=== PATIENT | male | born 1960 | race American Indian/Alaskan Native ===

== ENCOUNTER 2020-02-07 08:57 | Emergency (ER) | payer OTHER ==
[2020-02-07 09:01] VITALS: PULSE 81; TEMP 99; BMI 32.3
[2020-02-07] MEDS ORDERED: CYCLOBENZAPRINE HCL 5 MG TABLET PO ONE (09:14)
--- NOTE | 2020-02-07 09:14 | PDOC ---
History of Present Illness - General Chief Complaint: Back Pain Stated Complaint: BACK PAIN Time Seen by Provider: 02/07/20 09:06 History Source: Patient Exam Limitations: No Limitations - History of Present Illness Initial Comments: 02/07/20 09:08 HPI 59 YOM with h/o HTN, HLD, obesity, CKD, kidney stones, chronic back pain presenting with persistent left sided back pain x 5 days. Pt states back pain is worse on the left side and radiates to his left buttock and knee, worse with lying down/bending, 10/10 and more squeezing-like. 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 he was seen about 3 days ago at [facility], told he had msk back pain, dc'd on lido patch and tylenol. he states no relief, has been trying exercises and physical activity, analgesia regimen, with some relief. He admits that exercising and doing sit ups and walking on treadmill improves his pain. Review of Systems Constitutional: no fevers or chills. HEENT: no headache or dizziness. no visual or hearing disturbances CVS: no chest pain, palpitations or syncope Resp: no respiratory distress or SOB. Abdomen: no abdominal pain, no n/v/d. Genitorurinary: no urinary retention or incontinence, no dysuria, urgency or frequency. no hematuria MUSCULOSKELETAL: No joint pain and swelling. No muscle pain/arthralgias. Back: +back pain SKIN: no redness or skin changes, no discharge, no rash. No wounds. Hematologic: no easy bruising/bleeding. NEUROLOGIC: No weakness, numbness or tingling. Allergic/Immunologic: no allergies All other systems reviewed and negative, or as documented in HPI. 02/07/20 09:45 02/07/20 09:55 Past History - Medical History Allergies/Adverse Reactions: Allergies Allergy/AdvReac Type Severity Reaction Status Date / Time No Known Drug Allergies Allergy Verified 02/07/20 08:58 Home Medications: Ambulatory Orders Lidocaine 5% Patch [Lidoderm -] 1 patch TP DAILY #10 patch 02/05/20 Lidocaine 5% Patch [Lidoderm -] 1 patch TP DAILY #30 patch 02/05/20 Cyclobenzaprine HCl [Flexeril 10 mg] 10 mg PO TID PRN #12 tablet 02/07/20 Oxycodone HCl 10 mg PO TID PRN #10 tablet MDD 3 02/07/20 Anemia: No Asthma: No Cancer: No Cardiac Disorders: No CVA: No COPD: No CHF: No Dementia: No Diabetes: No GI Disorders: No Disorders: Yes (L KIDNEY PAIN AT TIMES. ?DX) HTN: Yes Hypercholesterolemia: Yes Liver Disease: No Seizures: No Thyroid Disease: No - Surgical History Abdominal Surgery: No Appendectomy: No Cardiac Surgery: No Cholecystectomy: No Lung Surgery: No Neurologic Surgery: No Orthopedic Surgery: Yes (L INDEX AMP. S/P TRAUMA) - Psycho-Social/Smoking History Smoking Status: No Smoking History: Never smoked Have you smoked in the past 12 months: No Number of Cigarettes Smoked Daily: 1 If you are a former smoker, when did you quit?: 1979 Information on smoking cessation initiated: No - Substance Abuse Hx (Audit-C & DAST Scrn) How often the patient has a drink containing alcohol: Monthly or less Score: In Men: 4 or > Positive; In Women: 3 or > Positive: 1 Screen Result (Pos requires Nsg. Audit-10AR): Negative In the last yr the pt used illegal drug/Rx for NonMed reason: No Score: Yes response is considered Positive: 0 Screen Result (Positive result requires Nsg. DAST-10): Negative *Physical Exam - Vital Signs Last Vital Signs Temp Pulse Resp BP Pulse Ox 99 F 81 18 160/104 H 100 02/07/20 08:57 02/07/20 08:57 02/07/20 08:57 02/07/20 08:57 02/07/20 08:57 - Physical Exam 02/07/20 09:11 physical exam General: NAD, well appearing HEENT: NCAT, EOMI, PERRL. airway patent CVS: RRR, no murmur Resp: no distress, speaking full sentences. lungs clear to auscultation. Abdomen: soft, no tenderness, nondistended. no CVAT Vascular: 2+ DP pulses symmetric and equal. Back: no midline tenderness, no stepoffs, FROM. +left sided paravertebral lumbar TTP MSK: notable for soft compartments, Cap refill <2 sec. Proximal and distal strength 5/5, manufacturing specialist strength 5/5 - equal and symmetric. Plantar flexion and dorsiflexion 5/5. FROM. Sensation grossly intact to light touch. No calf tenderness. b/l patellar reflexes intact. Neg SLR bilaterally Neuro: alert, no focal neurologic deficits Skin: color normal color, warm and well perfused. Cap refill <2 sec. 02/07/20 09:46 ED Treatment Course - LABORATORY CBC & Chemistry Diagram: 02/07/20 09:24 02/07/20 09:11 Medical Decision Making - Medical Decision Making 02/07/20 09:12 Vital Signs Temp Pulse Resp BP Pulse Ox 99 F 81 18 160/104 H 100 02/07/20 08:57 02/07/20 08:57 02/07/20 08:57 02/07/20 08:57 02/07/20 08:57 vitals with hypertension, otherwise no fever or systemic features nontoxic abdomen is soft and nontender pt has had chronic back pain and disc herniation per report x "long time," now with an exacerbation x 5 days. relief with exercises. DDx back pain: back strain, lumbago, sciatica, radiculopathy, spinal stenosis. Muscle spasm. Lumbar radiculopathy. No risk factors or findings concerning for epidural abscess, discitis, vertebral osteomyelitis, cord compression, cauda equina, vertebral fracture or bone malignancy, AAA, vascular pathology/bleeding or pyelonephritis. Clinically doubt based on exam and clinical history: cord compression or cauda equina, with low suspicion and NO red flag sx such as malignancy, weight loss, trauma, fevers, IVDU, lumbar/spinal procedures, bowel and bladder incontinence/retention, urinary sx, neurologic deficits or changes. clinically appears more like msk strain/lumbago given his line of work labs and lytes with baseline ckd, cr today 2.5, baseline was 1.6 (in 2013) - known established history. no anemia, no s/s infection ua with some blood, but no acute pathology noted, does not appear infected. +protein, likely from his ckd on reeval, does not have flank pain or abdominal pain. still appearing more msk in etiology pt has urology follow up tomorrow Once the patients pain was adequately controlled, the patient was able to ambulate and be discharged in stable condition with anticipatory guidance provided. Can ambulate as tolerated, no heavy lifting, range of motion exercises encouraged. Rx meds, side effects reviewed, prn for analgesia/spasms. Patient instructed to consider further imaging and workup through their primary care physician as an outpatient if symptoms persist. 02/07/20 09:46 02/07/20 10:00 02/07/20 10:13 Discharge - Discharge Information Problems reviewed: Yes Clinical Impression/Diagnosis: Lumbar back pain Condition: Stable Disposition: HOME - Admission No - Additional Discharge Information Prescriptions: Cyclobenzaprine HCl [Flexeril 10 mg] 10 mg PO TID PRN #12 tablet PRN Reason: Muscle Spasms Oxycodone HCl 10 mg PO TID PRN #10 tablet MDD 3 PRN Reason: Severe Pain - Follow up/Referral Referrals: Jairon Epperson MD [Primary Care Provider] - Pasquale Diaz MD [Staff Physician] - Philip Ramirez MD, FAANS [Staff Physician] - - Patient Discharge Instructions Patient Printed Discharge Instructions: Back Pain (Alternative Therapy), DI for Low Back Pain, Exercise May Reduce Risk of Low Back Pain Additional Instructions: Discharge: Please follow up with your Primary Care Doctor within 48-72 hours - call for an appointment. you have been provided specialists for your spine. Ambulate as tolerated and no heavy lifting. Take Tylenol 975 mg every 6 hours as needed for mild to moderate back pain, Oxycodone every 8 hours as needed for severe back pain, Flexeril every 8 hours as needed for muscle spasm- do not drive or make any important decisions while on this medication for it can make you drowsy. If you experience any worsening pain, swelling, numbness, weakness please return to ER HOME CARE INSTRUCTIONS: For many people, back pain returns. Since low back pain is rarely dangerous, it is often a condition that people can learn to manage on their own. Please remain active. 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 Do not sit, drive, or reinsurance claim analyst one place for more than 30 minutes at a time. Take short walks on level surfaces as soon as pain allows. Try to increase the length of time you walk each day. Do not stay in bed. Resting more than 1 or 2 days can delay your recovery. Do not avoid exercise or work. Your body is made to move. It is not dangerous to be active, even though your back may hurt. Your back will likely heal faster if you return to being active before your pain is gone. Only take pxwk-[id number] or prescription medicines as directed by your caregiver. Hcph-jzw-lcnzyag medicines to reduce pain and inflammation are often the most helpful. Your caregiver may prescribe muscle relaxant drugs. These medicines help dull your pain so you can more quickly return to your normal activities and healthy exercise. Please avoid driving, operating heavy machinery or making important decisions while on this drug - it can cloud your judgment. Avoid feeling anxious or stressed. Stress increases muscle tension and can worsen back pain. It is important to recognize when you are anxious or stressed and learn ways to manage it. Exercise is a great option. SEEK MEDICAL CARE IF: You have pain that is not relieved with rest or medicine. You have pain that does not improve in 1 week. You have new symptoms. You are generally not feeling well. SEEK IMMEDIATE MEDICAL CARE IF: You have pain that radiates from your back into your legs. You develop new bowel or bladder control problems. You have unusual weakness or numbness in your arms or legs. You develop nausea or vomiting. You develop abdominal pain. You feel faint. - Post Discharge Activity Work/Back to School Note: Back to Work
[2020-02-07] MEDS ORDERED: CYCLOBENZAPRINE HCL 10 MG TABLET (FP) ONE (09:17)
[2020-02-07 09:26] LABS: BASO % 1.4 % (0-2.0); EOS % 13.3 % (0-4.5); HEMATOCRIT 46.1 % (35.4-49); LYMPH % 22.9 % (8-40); MCH 29.8 pg (25.7-33.7); MCHC 32.5 g/dl (32.0-35.9); MEAN CELL VOLUME 91.8 fl (80-96); MONO % 6.6 % (3.8-10.2); NEUT % 55.8 % (42.8-82.8); PLATELET COUNT 158 K/MM3 (134-434); RBC 5.02 M/mm3 (4.00-5.60); RDW 13.7 % (11.9-15.9); WHITE BLOOD COUNT 7.7 K/mm3 (4.0-10.8)
[2020-02-07 09:42] LABS: EPITHELIAL CELLS RARE /hpf
[2020-02-07 09:48] LABS: ALBUMIN 3.9 g/dl (3.4-5.0); BILIRUBIN,TOTAL 0.4 mg/dl (0.2-1); CREATININE 2.5 mg/dl (0.55-1.3); POTASSIUM 5.1 mmol/L (3.5-5.1); TOT PROT 7.1 g/dl (6.4-8.2)
[2020-02-07 10:36] VITALS: BP 158/94
== END 2020-02-07 10:05 | disposition home or self-care (01) ==
LOC: FER 08:57 → SUPCPDRO 08:57 → FER 10:05
DX: M54.5 Low back pain (principal)
CPT/HCPCS: 36415; 80053; 81003; 81015; 85025; 99283-25

== ENCOUNTER 2020-09-01 13:30 | Inpatient (IN) | payer OTHER ==
[2020-10-05 12:11] VITALS: BMI 36.3
[2020-10-06] MEDS ORDERED: MIDAZOLAM HCL 2 MG/2 ML SINGLE DOSE VIAL ONE (07:59)
[2020-10-06] MEDS ORDERED: PROPOFOL 20 ML ONE (07:59)
[2020-10-06] MEDS ORDERED: ROCURONIUM BROMIDE 50 MG/5 ML SYRINGE ONE ×2 (07:59→11:04)
[2020-10-06] MEDS ORDERED: LIDOCAINE HCL/PF 2% SDV 5ML VIAL ONE (07:59)
[2020-10-06] MEDS ORDERED: BUPIVACAINE LIPOSOME/PF (EXPAREL) 266 MG/20 ML VIAL ONE (08:27)
[2020-10-06] MEDS ORDERED: VANCOMYCIN 1,000 MG VIAL (RESTRICTED TO ID ONLY) ONE ×2 (08:27→09:38)
[2020-10-06] MEDS ORDERED: GENTAMICIN SO4 80 MG/2 ML VIAL ONE (08:27)
[2020-10-06] MEDS ORDERED: LIDOCAINE 1%/EPI 1:100000 (50 ML MULTI DOSE VIAL) ONE (08:27)
[2020-10-06] MEDS ORDERED: THROMBIN (BOVINE) 20,000 UNIT VIAL TP ONE (08:28)
[2020-10-06] MEDS ORDERED: CEFAZOLIN 2 GM/D5W 2 GM/50 ML ML IVPB ONE (08:47)
[2020-10-06] MEDS ORDERED: MORPHINE 5 MG/10 ML AMP - FOR COMPOUNDING USE ONLY ONE (09:11)
[2020-10-06] MEDS ORDERED: ceFAZolin SODIUM 1 GM VIAL ONE ×2 (09:38→17:22)
[2020-10-06] MEDS ORDERED: TRANEXAMIC ACID 1000 MG/10 ML VIAL ONE (09:38)
[2020-10-06] MEDS ORDERED: ceFAZolin 2 GRAM PREMIX BAG IVPB ONE (09:40)
[2020-10-06] MEDS ORDERED: VANCOMYCIN 500 MG VIAL (RESTRICTED TO ID ONLY) IVPB ONE (09:45)
[2020-10-06] MEDS ORDERED: LIDOCAINE 1%/EPI 1:100000 (50 ML MULTI DOSE VIAL) INF ONE (09:55)
[2020-10-06] MEDS ORDERED: HYDROmorphone HCl 2 MG/ML VIAL ONE (10:01)
[2020-10-06] MEDS ORDERED: GENTAMICIN SO4 80 MG/2 ML VIAL IVPB ONE (10:32)
[2020-10-06] MEDS ORDERED: BACITRACIN 50,000 UNITS VIAL NR ONE (10:33)
[2020-10-06] MEDS ORDERED: HYDROGEN PEROXIDE 473 ML PO ONE (10:34)
[2020-10-06] MEDS ORDERED: THROMBIN (BOVINE) 5,000 UNIT VIAL TP ONE (10:34)
[2020-10-06] MEDS ORDERED: BUPIVACAINE HCL/PF 0.5% (5 MG/ML) 30 ML VIAL IJ ONE (10:35)
[2020-10-06] MEDS ORDERED: BUPIVACAINE LIPOSOME/PF (EXPAREL) 266 MG/20 ML VIAL NR ONE (10:36)
[2020-10-06] MEDS ORDERED: GLYCOPYRROLATE 0.2 MG/1 ML VIAL ONE (11:32)
[2020-10-06] MEDS ORDERED: NEOSTIGMINE METHYLSULFATE 0.5 MG/1 ML - 10 ML MDV ONE (11:32)
[2020-10-06] MEDS ORDERED: ONDANSETRON 4 MG/2 ML VIAL IVPUSH PRN ×2 (12:56→16:09)
[2020-10-06] MEDS ORDERED: diphenhydrAMINE HCL 25 MG CAPSULE (FP) PO PRN (12:56)
[2020-10-06] MEDS ORDERED: SODIUM CHLORIDE 1,000 ML IV SCH (13:15)
[2020-10-06] MEDS ORDERED: ACETAMINOPHEN INJECTION 100 ML IVPB ONE ×2 (13:16→18:15)
[2020-10-06] MEDS ORDERED: ACETAMINOPHEN 1000 MG/100 ML VIAL (NON FORMULARY) IVPB ONE ×2 (13:30→19:00)
[2020-10-06] MEDS ORDERED: NALOXONE HCL 0.4 MG/ML VIAL IVPUSH PRN (16:09)
[2020-10-06] MEDS ORDERED: ONDANSETRON 4 MG/2 ML VIAL ONE (17:07)
[2020-10-06] MEDS ORDERED: ONDANSETRON 4 MG/2 ML VIAL IVPUSH ONE (17:15)
[2020-10-06] MEDS ORDERED: ceFAZolin SODIUM 1 GM VIAL IVPB ONE (17:31)
[2020-10-06] MEDS: oxyCODONE HCL 5 MG TABLET PO PRN (20:15)
[2020-10-06] MEDS ORDERED: oxyCODONE HCL 5 MG TABLET ONE (20:20)
[2020-10-06] MEDS: HEPARIN NA (PORCINE) 5,000 UNITS/ML 1ML VIAL SQ SCH ×2 (22:36→22:47)
[2020-10-06] MEDS: ROSUVASTATIN CA 5 MG TABLET (FP) PO SCH (22:37)
[2020-10-06] MEDS: DOCUSATE SODIUM 100 MG CAPSULE (FP) PO SCH ×2 (22:37→22:47)
[2020-10-06] MEDS: ACETAMINOPHEN 1000 MG/100 ML VIAL (NON FORMULARY) IVPB SCH (22:47)
[2020-10-06] MEDS: CEFAZOLIN 1 GM/D5W 1 GM/50 ML BAG IVPB SCH (22:48)
[2020-10-07] MEDS: ACETAMINOPHEN 1000 MG/100 ML VIAL (NON FORMULARY) IVPB SCH ×2 (00:59→06:40)
[2020-10-07] MEDS: HEPARIN NA (PORCINE) 5,000 UNITS/ML 1ML VIAL SQ SCH ×3 (03:52→17:54)
[2020-10-07] MEDS: CEFAZOLIN 1 GM/D5W 1 GM/50 ML BAG IVPB SCH (03:53)
[2020-10-07] MEDS: oxyCODONE HCL 5 MG TABLET PO PRN ×5 (04:04→21:19)
[2020-10-07] MEDS: DOCUSATE SODIUM 100 MG CAPSULE (FP) PO SCH ×3 (06:40→21:21)
[2020-10-07 07:25] LABS: HEMOGLOBIN 11.9 GM/dL (11.7-16.9); MCH 28.9 pg (25.7-33.7); MEAN CELL VOLUME 90.1 fl (80-96); MEAN PLT VOLUME 9.7 fl (7.5-11.1); PLATELET COUNT 142 K/MM3 (134-434); RBC 4.11 M/mm3 (4.00-5.60); RDW 15.5 % (11.9-15.9); WHITE BLOOD COUNT 10.5 K/mm3 (4.0-10.0)
[2020-10-07 07:45] LABS: CHLORIDE 114 mmol/L (98-107); SODIUM 139 mmol/L (136-145)
[2020-10-07 07:48] LABS: BLOOD UREA NITROGEN 39.2 mg/dL (7-18); CALCIUM 8.5 mg/dL (8.5-10.1); CO2 17 mmol/L (21-32); GLUCOSE,RANDOM 88 mg/dL (74-106)
[2020-10-07 07:51] LABS: CREATININE 3.9 mg/dL (0.55-1.3)
[2020-10-07 08:53] LABS: ANION GAP 8 MMOL/L (8-16)
[2020-10-07] MEDS ORDERED: DEXTROSE 5%-WATER - 50 ML IVPB ONE ×2 (09:38→17:51)
[2020-10-07] MEDS ORDERED: ceFAZolin SODIUM 1 GM VIAL ONE ×2 (09:38→17:51)
[2020-10-07] MEDS: FERROUS SO4 325 MG TABLET (FP) PO SCH (09:41)
[2020-10-07] MEDS: FOLIC ACID 1 MG TABLET (FP) PO SCH (09:41)
[2020-10-07] MEDS: amLODIPine BESYLATE 5 MG TABLET (FP) PO SCH (09:41)
[2020-10-07] MEDS: CEFAZOLIN 1 GM in DEXTROSE 5%-WATER - 50 ML IVPB SCH ×2 (09:42→17:54)
[2020-10-07] MEDS: ALLOPURINOL 300 MG TABLET (FP) PO SCH (09:42)
[2020-10-07] MEDS ORDERED: LOSARTAN POTASSIUM 50 MG TABLET PO SCH (10:00)
[2020-10-07] MEDS ORDERED: DEXTROSE 50%-WATER - 25 GM/50 ML VIAL IVPUSH ONE ×2 (11:04→13:45)
[2020-10-07] MEDS ORDERED: SODIUM CHLORIDE 0.45% 1,000 ML IV SCH (11:15)
[2020-10-07] MEDS ORDERED: INSULIN REGULAR HUMAN 100 UNITS/ML *VIAL IVPUSH ONE (11:15)
[2020-10-07] MEDS ORDERED: SODIUM POLYSTYRENE SULFONATE 15 GM/60 ML BOTTLE PO ONE (11:15)
[2020-10-07] MEDS ORDERED: SODIUM ZIRCONIUM CYCLOSILICATE (LOKELMA) 5 GM PACKET PO ONE (11:30)
[2020-10-07] MEDS: ACETAMINOPHEN 325 MG TABLET (FP) PO SCH ×2 (13:30→18:43)
[2020-10-07] MEDS ORDERED: DEXTROSE 50%-WATER 25 GM/50 ML DISP.SYRIN ONE (14:05)
[2020-10-07 15:44] LABS: CALCIUM 9.3 mg/dL (8.5-10.1)
[2020-10-07 15:45] LABS: BLOOD UREA NITROGEN 38.2 mg/dL (7-18)
[2020-10-07 15:49] LABS: CREATININE 3.8 mg/dL (0.55-1.3)
[2020-10-07] MEDS: SODIUM BICARBONATE 8.4% - 50 MEQ in SODIUM CHLORIDE 0.45% 1,000 ML IV SCH (17:11)
[2020-10-07] MEDS: ROSUVASTATIN CA 5 MG TABLET (FP) PO SCH (21:21)
[2020-10-08] MEDS ORDERED: ceFAZolin SODIUM 1 GM VIAL ONE ×3 (01:23→17:04)
[2020-10-08] MEDS ORDERED: DEXTROSE 5%-WATER - 50 ML IVPB ONE ×3 (01:24→17:05)
[2020-10-08] MEDS: ACETAMINOPHEN 325 MG TABLET (FP) PO SCH ×4 (01:30→18:22)
[2020-10-08] MEDS: oxyCODONE HCL 5 MG TABLET PO PRN ×4 (02:00→21:46)
[2020-10-08] MEDS: CEFAZOLIN 1 GM in DEXTROSE 5%-WATER - 50 ML IVPB SCH ×3 (02:00→17:13)
[2020-10-08] MEDS: HEPARIN NA (PORCINE) 5,000 UNITS/ML 1ML VIAL SQ SCH ×3 (02:03→17:13)
[2020-10-08] MEDS: DOCUSATE SODIUM 100 MG CAPSULE (FP) PO SCH ×3 (06:49→21:50)
[2020-10-08 08:41] LABS: BLOOD UREA NITROGEN 39.5 mg/dL (7-18); CALCIUM 8.2 mg/dL (8.5-10.1)
[2020-10-08] MEDS: FERROUS SO4 325 MG TABLET (FP) PO SCH (09:42)
[2020-10-08] MEDS: FOLIC ACID 1 MG TABLET (FP) PO SCH (09:42)
[2020-10-08] MEDS: ALLOPURINOL 300 MG TABLET (FP) PO SCH (09:42)
[2020-10-08] MEDS: amLODIPine BESYLATE 5 MG TABLET (FP) PO SCH (09:42)
[2020-10-08] MEDS: SODIUM BICARBONATE 8.4% - 50 MEQ in SODIUM CHLORIDE 0.45% 1,000 ML IV SCH (09:44)
[2020-10-08] MEDS ORDERED: SODIUM ZIRCONIUM CYCLOSILICATE (LOKELMA) 5 GM PACKET PO SCH (10:00)
[2020-10-08 10:07] LABS: BASO % 0.6 % (0-2.0); EOS % 4.6 % (0-4.5); HEMATOCRIT 35.4 % (35.4-49); HEMOGLOBIN 11.5 GM/dL (11.7-16.9); LYMPH % 16.8 % (8-40); MCH 29.2 pg (25.7-33.7); MCHC 32.5 g/dl (32.0-35.9); MEAN CELL VOLUME 89.7 fl (80-96); MEAN PLT VOLUME 10.2 fl (7.5-11.1); MONO % 8.1 % (3.8-10.2); NEUT % 69.9 % (42.8-82.8); PLATELET COUNT 133 K/MM3 (134-434); RBC 3.94 M/mm3 (4.00-5.60); RDW 15.2 % (11.9-15.9); WHITE BLOOD COUNT 11.4 K/mm3 (4.0-10.0)
[2020-10-08] MEDS ORDERED: SODIUM CHLORIDE 0.45% 1,000 ML IV SCH (13:00)
[2020-10-08] MEDS: SODIUM BICARBONATE 650 MG TABLET PO SCH ×2 (13:40→21:52)
[2020-10-08] MEDS: ROSUVASTATIN CA 5 MG TABLET (FP) PO SCH (21:51)
[2020-10-09] MEDS: HEPARIN NA (PORCINE) 5,000 UNITS/ML 1ML VIAL SQ SCH ×3 (02:00→17:23)
[2020-10-09] MEDS: CEFAZOLIN 1 GM in DEXTROSE 5%-WATER - 50 ML IVPB SCH ×2 (02:00→09:23)
[2020-10-09] MEDS ORDERED: ceFAZolin SODIUM 1 GM VIAL ONE ×2 (05:46→08:44)
[2020-10-09] MEDS ORDERED: DEXTROSE 5%-WATER - 50 ML IVPB ONE ×2 (05:46→08:44)
[2020-10-09] MEDS: DOCUSATE SODIUM 100 MG CAPSULE (FP) PO SCH ×3 (06:01→21:03)
[2020-10-09] MEDS: oxyCODONE HCL 5 MG TABLET PO PRN ×2 (06:02→22:14)
[2020-10-09] MEDS: ACETAMINOPHEN 325 MG TABLET (FP) PO SCH ×4 (06:04→18:36)
[2020-10-09 08:03] LABS: BASO % 0.3 % (0-2.0); EOS % 4.9 % (0-4.5); HEMATOCRIT 36.2 % (35.4-49); LYMPH % 14.4 % (8-40); MCH 29.2 pg (25.7-33.7); MEAN CELL VOLUME 88.4 fl (80-96); MEAN PLT VOLUME 9.7 fl (7.5-11.1); MONO % 5.3 % (3.8-10.2); NEUT % 75.1 % (42.8-82.8); PLATELET COUNT 144 K/MM3 (134-434); RDW 14.9 % (11.9-15.9); WHITE BLOOD COUNT 9.9 K/mm3 (4.0-10.0)
[2020-10-09 08:10] LABS: ALBUMIN 2.8 g/dl (3.4-5.0); BLOOD UREA NITROGEN 37.6 mg/dL (7-18); CALCIUM 8.1 mg/dL (8.5-10.1)
[2020-10-09 08:15] LABS: BILIRUBIN,TOTAL 0.5 mg/dL (0.2-1); CREATININE 3.6 mg/dL (0.55-1.3); TOT PROT 6.1 g/dl (6.4-8.2)
[2020-10-09] MEDS ORDERED: PT OWN MED DRAWER 7, Y5N ONE (08:45)
[2020-10-09] MEDS: ALLOPURINOL 300 MG TABLET (FP) PO SCH (09:23)
[2020-10-09] MEDS: SODIUM BICARBONATE 650 MG TABLET PO SCH ×2 (09:23→21:03)
[2020-10-09] MEDS: FERROUS SO4 325 MG TABLET (FP) PO SCH (09:23)
[2020-10-09] MEDS: FOLIC ACID 1 MG TABLET (FP) PO SCH (09:23)
[2020-10-09] MEDS: amLODIPine BESYLATE 5 MG TABLET (FP) PO SCH (09:23)
[2020-10-09] MEDS ORDERED: SODIUM CHLORIDE 0.45% 1,000 ML IV SCH (11:18)
[2020-10-09] MEDS: ROSUVASTATIN CA 5 MG TABLET (FP) PO SCH (21:03)
[2020-10-10] MEDS: ACETAMINOPHEN 325 MG TABLET (FP) PO SCH ×3 (01:12→14:08)
[2020-10-10] MEDS: HEPARIN NA (PORCINE) 5,000 UNITS/ML 1ML VIAL SQ SCH ×2 (01:15→09:55)
[2020-10-10] MEDS: DOCUSATE SODIUM 100 MG CAPSULE (FP) PO SCH ×2 (06:43→14:08)
[2020-10-10] MEDS: SODIUM BICARBONATE 650 MG TABLET PO SCH (09:54)
[2020-10-10] MEDS: FOLIC ACID 1 MG TABLET (FP) PO SCH (09:54)
[2020-10-10] MEDS: FERROUS SO4 325 MG TABLET (FP) PO SCH (09:54)
[2020-10-10] MEDS: amLODIPine BESYLATE 5 MG TABLET (FP) PO SCH (09:54)
[2020-10-10] MEDS: ALLOPURINOL 300 MG TABLET (FP) PO SCH (09:54)
[2020-10-10 15:05] VITALS: BP 104/53; PULSE 96; TEMP 98.3
== END 2020-10-10 14:31 | disposition home health service (06) | DRG 464 ==
LOC: J2C 10-06 04:04 → J4W 10-06 21:21
PROVIDERS: ADMIT Neurological Surgery; ATTEND Family Medicine
PROC: 0JX70ZB Transfer Back Subcutaneous Tissue and Fascia with Skin and Subcutaneous Tissue, Open Approach (ICD-10-PCS; 2020-10-06)
PROC: 0QB00ZZ Excision of Lumbar Vertebra, Open Approach (ICD-10-PCS; 2020-10-06)
PROC: B01BZZZ Fluoroscopy of Spinal Cord (ICD-10-PCS; 2020-10-06)
PROC: 4A1004G Monitoring of Central Nervous Electrical Activity, Intraoperative, Open Approach (ICD-10-PCS; 2020-10-06)
PROC: 01NB0ZZ Release Lumbar Nerve, Open Approach (ICD-10-PCS; principal; 2020-10-06 09:00)
DX: M48.061 Spinal stenosis, lumbar region without neurogenic claudication (principal); N18.4 Chronic kidney disease, stage 4 (severe); E87.2 Acidosis; M62.82 Rhabdomyolysis; I12.9 Hypertensive chronic kidney disease with stage 1 through stage 4 chronic kidney disease, or unspecified chronic kidney disease; E78.5 Hyperlipidemia, unspecified; E66.9 Obesity, unspecified; Z68.36 Body mass index [BMI] 36.0-36.9, adult; E87.5 Hyperkalemia
CPT/HCPCS: 36415; 76000-TC-FY; 80048; 80053; 82550; 82553; 84132; 85025; 85027; 86850; 86900; 86901; 93005; 93010; 94760; 97116-GP; 97161-GP; J0131; J1644

== ENCOUNTER 2020-10-21 14:03 | Inpatient (IN) | payer OTHER ==
[2020-10-21 15:32] LABS: BASO % 2.3 % (0-2.0); EOS % 9.1 % (0-4.5); HEMATOCRIT 36.3 % (35.4-49); HEMOGLOBIN 11.8 GM/dL (11.7-16.9); LYMPH % 23.2 % (8-40); MCH 28.6 pg (25.7-33.7); MCHC 32.6 g/dl (32.0-35.9); MEAN CELL VOLUME 87.9 fl (80-96); MEAN PLT VOLUME 8.4 fl (7.5-11.1); MONO % 5.1 % (3.8-10.2); NEUT % 60.3 % (42.8-82.8); PLATELET COUNT 332 K/MM3 (134-434); RBC 4.13 M/mm3 (4.00-5.60); RDW 15.3 % (11.9-15.9); WHITE BLOOD COUNT 9.3 K/mm3 (4.0-10.0)
[2020-10-21 15:55] LABS: CHLORIDE 109 mmol/L (98-107); SODIUM 137 mmol/L (136-145)
[2020-10-21 15:58] LABS: BLOOD UREA NITROGEN 54.7 mg/dL (7-18); CO2 20 mmol/L (21-32); GLUCOSE,RANDOM 117 mg/dL (74-106); MAGNESIUM 2.7 mg/dL (1.8-2.4)
[2020-10-21 16:01] LABS: CREATININE 3.7 mg/dL (0.55-1.3); SGOT/AST 35 U/L (15-37); SGPT/ALT 47 U/L (13-61)
[2020-10-21 16:02] LABS: TOT PROT 7.6 g/dl (6.4-8.2)
[2020-10-21 16:03] LABS: BILIRUBIN,TOTAL 0.3 mg/dL (0.2-1)
[2020-10-21 16:04] LABS: ALK PHOS 105 U/L (45-117)
[2020-10-21 16:16] LABS: ALBUMIN 3.6 g/dl (3.4-5.0); ANION GAP 8 MMOL/L (8-16); CALCIUM 9.4 mg/dL (8.5-10.1)
[2020-10-21] MEDS ORDERED: DEXTROSE 50%-WATER - 25 GM/50 ML VIAL IVPUSH ONE (16:19)
[2020-10-21] MEDS ORDERED: INSULIN REGULAR HUMAN 100 UNITS/ML *VIAL IVPUSH ONE (16:19)
[2020-10-21] MEDS ORDERED: CALCIUM GLUCONATE 10% - 1,000 MG/10 ML VIAL IVPUSH ONE (16:19)
[2020-10-21] MEDS ORDERED: FUROSEMIDE 40 MG/4 ML INJECTABLE VIAL IVPUSH ONE (16:20)
[2020-10-21] MEDS ORDERED: SODIUM ZIRCONIUM CYCLOSILICATE (LOKELMA) 5 GM PACKET PO ONE (16:20)
[2020-10-21] MEDS ORDERED: CALCIUM GLUCONATE 10% - 1,000 MG/10 ML VIAL ONE (16:51)
[2020-10-21] MEDS ORDERED: DEXTROSE 50%-WATER 25 GM/50 ML DISP.SYRIN ONE (16:51)
[2020-10-21] MEDS ORDERED: SODIUM ZIRCONIUM CYCLOSILICATE (LOKELMA) 5 GM PACKET ONE (16:52)
[2020-10-21] MEDS ORDERED: FUROSEMIDE 40 MG/4 ML INJECTABLE VIAL ONE (16:52)
[2020-10-21] MEDS ORDERED: oxyCODONE HCL 5 MG TABLET PO PRN (19:20)
[2020-10-21] MEDS: SODIUM CHLORIDE 0.45% 1,000 ML IV SCH (19:49)
[2020-10-21] MEDS: ENOXAPARIN NA (PORCINE) 40 MG/0.4 ML DISP.SYRIN SQ SCH (19:49)
[2020-10-21 20:49] LABS: CHLORIDE 108 mmol/L (98-107); SODIUM 138 mmol/L (136-145)
[2020-10-21 20:52] LABS: CALCIUM 9.3 mg/dL (8.5-10.1)
[2020-10-21 20:53] LABS: ANION GAP 9 MMOL/L (8-16); BLOOD UREA NITROGEN 50.5 mg/dL (7-18); CO2 21 mmol/L (21-32); GLUCOSE,RANDOM 140 mg/dL (74-106)
[2020-10-21 20:56] LABS: CREATININE 3.6 mg/dL (0.55-1.3)
[2020-10-21] MEDS: DOCUSATE SODIUM 100 MG CAPSULE (FP) PO SCH (23:06)
[2020-10-21] MEDS: ROSUVASTATIN CA 10 MG TABLET (FP) PO SCH (23:07)
[2020-10-21] MEDS: SODIUM BICARBONATE 650 MG TABLET PO SCH (23:07)
[2020-10-21] MEDS ORDERED: DOCUSATE SODIUM 100 MG CAPSULE (FP) PO ONE (23:08)
[2020-10-22] MEDS: SODIUM CHLORIDE 0.45% 1,000 ML IV SCH (01:18)
[2020-10-22 02:11] VITALS: BMI 36.6
[2020-10-22 09:12] LABS: BASO % 1.2 % (0-2.0); EOS % 9.3 % (0-4.5); HEMATOCRIT 36.8 % (35.4-49); HEMOGLOBIN 12.2 GM/dL (11.7-16.9); LYMPH % 26.6 % (8-40); MCH 29.5 pg (25.7-33.7); MCHC 33.1 g/dl (32.0-35.9); MEAN CELL VOLUME 89.2 fl (80-96); MEAN PLT VOLUME 9.3 fl (7.5-11.1); MONO % 5.8 % (3.8-10.2); NEUT % 57.1 % (42.8-82.8); PLATELET COUNT 247 K/MM3 (134-434); RBC 4.13 M/mm3 (4.00-5.60); RDW 15.2 % (11.9-15.9); WHITE BLOOD COUNT 8.9 K/mm3 (4.0-10.0)
[2020-10-22 09:46] LABS: CHLORIDE 107 mmol/L (98-107); SODIUM 135 mmol/L (136-145)
[2020-10-22 09:51] LABS: ALBUMIN 3.4 g/dl (3.4-5.0); ANION GAP 9 MMOL/L (8-16); CALCIUM 9.2 mg/dL (8.5-10.1); CO2 19 mmol/L (21-32)
[2020-10-22 09:52] LABS: GLUCOSE,RANDOM 91 mg/dL (74-106); MAGNESIUM 2.5 mg/dL (1.8-2.4)
[2020-10-22 09:54] LABS: SGPT/ALT 38 U/L (13-61)
[2020-10-22 09:55] LABS: CREATININE 3.5 mg/dL (0.55-1.3); PHOSPHOROUS 5.2 mg/dL (2.5-4.9); SGOT/AST 26 U/L (15-37)
[2020-10-22 09:56] LABS: BILIRUBIN,TOTAL 0.5 mg/dL (0.2-1); TOT PROT 6.8 g/dl (6.4-8.2)
[2020-10-22 09:57] LABS: ALK PHOS 94 U/L (45-117)
[2020-10-22] MEDS: SODIUM BICARBONATE 650 MG TABLET PO SCH ×2 (11:18→22:21)
[2020-10-22] MEDS: ALLOPURINOL 300 MG TABLET (FP) PO SCH (11:18)
[2020-10-22] MEDS: FERROUS SO4 325 MG TABLET (FP) PO SCH (11:18)
[2020-10-22] MEDS: ENOXAPARIN NA (PORCINE) 40 MG/0.4 ML DISP.SYRIN SQ SCH (11:18)
[2020-10-22] MEDS: FOLIC ACID 1 MG TABLET (FP) PO SCH (11:18)
[2020-10-22] MEDS: amLODIPine BESYLATE 5 MG TABLET (FP) PO SCH (11:18)
[2020-10-22] MEDS ORDERED: SODIUM POLYSTYRENE SULFONATE 15 GM/60 ML BOTTLE PO ONE (11:25)
[2020-10-22] MEDS ORDERED: SODIUM CHLORIDE 1,000 ML IV SCH (12:45)
[2020-10-22] MEDS: SODIUM ZIRCONIUM CYCLOSILICATE (LOKELMA) 5 GM PACKET PO SCH (13:39)
[2020-10-22 14:06] LABS: BLOOD UREA NITROGEN 44.2 mg/dL (7-18)
[2020-10-22 14:09] LABS: CREATININE 2.6 mg/dL (0.55-1.3)
[2020-10-22 14:17] LABS: CALCIUM 7.1 mg/dL (8.5-10.1)
[2020-10-22] MEDS: GABAPENTIN 100 MG CAPSULE PO SCH (18:19)
[2020-10-22 18:53] LABS: BLOOD UREA NITROGEN 51.8 mg/dL (7-18)
[2020-10-22 18:56] LABS: CREATININE 3.6 mg/dL (0.55-1.3)
[2020-10-22] MEDS: DOCUSATE SODIUM 100 MG CAPSULE (FP) PO SCH (22:21)
[2020-10-22] MEDS: ROSUVASTATIN CA 10 MG TABLET (FP) PO SCH (22:21)
[2020-10-23 09:29] LABS: HEMATOCRIT 35.3 % (35.4-49); HEMOGLOBIN 11.6 GM/dL (11.7-16.9); MEAN PLT VOLUME 9.1 fl (7.5-11.1); PLATELET COUNT 303 K/MM3 (134-434); RBC 4.01 M/mm3 (4.00-5.60); WHITE BLOOD COUNT 9.2 K/mm3 (4.0-10.0)
[2020-10-23 10:00] LABS: BLOOD UREA NITROGEN 50.6 mg/dL (7-18); MAGNESIUM 2.6 mg/dL (1.8-2.4)
[2020-10-23 10:02] LABS: CREATININE 3.3 mg/dL (0.55-1.3)
[2020-10-23 10:03] LABS: PHOSPHOROUS 4.9 mg/dL (2.5-4.9)
[2020-10-23 10:18] LABS: CALCIUM 9.2 mg/dL (8.5-10.1)
[2020-10-23] MEDS: SODIUM ZIRCONIUM CYCLOSILICATE (LOKELMA) 5 GM PACKET PO SCH ×2 (10:20→23:17)
[2020-10-23] MEDS: amLODIPine BESYLATE 5 MG TABLET (FP) PO SCH (11:39)
[2020-10-23] MEDS: SODIUM BICARBONATE 650 MG TABLET PO SCH ×2 (11:40→21:14)
[2020-10-23] MEDS: GABAPENTIN 100 MG CAPSULE PO SCH (11:40)
[2020-10-23] MEDS: FERROUS SO4 325 MG TABLET (FP) PO SCH (11:40)
[2020-10-23] MEDS: ALLOPURINOL 300 MG TABLET (FP) PO SCH (11:41)
[2020-10-23] MEDS: ENOXAPARIN NA (PORCINE) 40 MG/0.4 ML DISP.SYRIN SQ SCH (11:42)
[2020-10-23] MEDS: FOLIC ACID 1 MG TABLET (FP) PO SCH (11:42)
[2020-10-23 18:40] LABS: BLOOD UREA NITROGEN 49.2 mg/dL (7-18); CALCIUM 8.8 mg/dL (8.5-10.1)
[2020-10-23 18:44] LABS: CREATININE 3.2 mg/dL (0.55-1.3)
[2020-10-23] MEDS: DOCUSATE SODIUM 100 MG CAPSULE (FP) PO SCH (21:14)
[2020-10-23] MEDS: ROSUVASTATIN CA 10 MG TABLET (FP) PO SCH (21:14)
[2020-10-24 08:38] LABS: BLOOD UREA NITROGEN 45.3 mg/dL (7-18)
[2020-10-24 08:41] LABS: CREATININE 3.1 mg/dL (0.55-1.3)
[2020-10-24] MEDS: amLODIPine BESYLATE 5 MG TABLET (FP) PO SCH (10:15)
[2020-10-24] MEDS: FOLIC ACID 1 MG TABLET (FP) PO SCH (10:15)
[2020-10-24] MEDS: ENOXAPARIN NA (PORCINE) 40 MG/0.4 ML DISP.SYRIN SQ SCH (10:15)
[2020-10-24] MEDS: GABAPENTIN 100 MG CAPSULE PO SCH (10:15)
[2020-10-24] MEDS: SODIUM BICARBONATE 650 MG TABLET PO SCH (10:15)
[2020-10-24] MEDS: FERROUS SO4 325 MG TABLET (FP) PO SCH (10:15)
[2020-10-24] MEDS: ALLOPURINOL 300 MG TABLET (FP) PO SCH (10:15)
[2020-10-24] MEDS: SODIUM ZIRCONIUM CYCLOSILICATE (LOKELMA) 5 GM PACKET PO SCH (13:09)
[2020-10-24 15:09] VITALS: BP 123/81; PULSE 93; TEMP 99
== END 2020-10-24 16:49 | disposition home or self-care (01) | DRG 641 ==
LOC: JER 14:03 → JERBED 16:21 → J5S 10-22 00:37
PROVIDERS: ADMIT Family Medicine; ATTEND Family Medicine
DX: E87.5 Hyperkalemia (principal); N18.4 Chronic kidney disease, stage 4 (severe); E83.41 Hypermagnesemia; I12.9 Hypertensive chronic kidney disease with stage 1 through stage 4 chronic kidney disease, or unspecified chronic kidney disease; E78.5 Hyperlipidemia, unspecified; R20.2 Paresthesia of skin; E87.2 Acidosis
CPT/HCPCS: 36415; 71045-TC-FY; 80048; 80053; 82550; 82607; 82746; 83036; 83735; 84100; 84443; 84484; 85025; 85027; 86780; 93005; 93010; 99285-25; C9803; U0003; U0005

== ENCOUNTER 2021-10-27 13:43 | Emergency (ER) | payer OTHER ==
[2021-10-27 13:54] VITALS: BP 150/89; PULSE 74; TEMP 99.2; BMI 31.3
[2021-10-27 16:15] LABS: INR 0.97 (0.83-1.09); PROTHROMBIN TIME (PATIENT) 11.1 SEC (9.7-13.0)
[2021-10-27 16:18] LABS: ACTIVATED PTT 25.4 SECONDS (25.2-36.5)
[2021-10-27 16:24] LABS: ALBUMIN 3.6 g/dl (3.4-5.0); BILIRUBIN,TOTAL 0.6 mg/dl (0.2-1); CALCIUM 8.9 mg/dl (8.5-10); TOT PROT 6.3 g/dl (6.4-8.2)
[2021-10-27 16:29] LABS: HEMATOCRIT 43.1 % (35.4-49); HEMOGLOBIN 14.9 G/dL (11.7-16.9); MCH 29.9 pg (25.7-33.7); MCHC 34.6 g/dl (32.0-35.9); MEAN CELL VOLUME 86.4 fl (80-96); MEAN PLT VOLUME 9.6 fl (7.5-11.1); PLATELET COUNT 136.8 10^3/uL (134-434); RBC 4.99 10^6/uL (4.00-5.60); RDW 14.4 % (11.9-15.9); WHITE BLOOD COUNT 7.2 10^3/uL (4.0-10.8)
[2021-10-27 18:02] LABS: PLATELET ESTIMATE ADEQUATE
== END 2021-10-27 20:00 | disposition left against medical advice (07) ==
LOC: FER 13:43
DX: K62.5 Hemorrhage of anus and rectum (principal)
CPT/HCPCS: 36415; 74176-TC; 80053; 81003; 81015; 82272; 85025; 85610; 85730; 86850; 86900; 86901; 87086; 99284-25; C9803-CS; U0003; U0005

== ENCOUNTER 2023-05-20 14:14 | Observation (INO) | payer OTHER ==
[2023-05-20 14:42] VITALS: BMI 34.7
[2023-05-20] MEDS ORDERED: ACETAMINOPHEN 1000 MG/100 ML BAG IVPB ONE (16:04)
[2023-05-20] MEDS ORDERED: LACTATED RINGERS SOLUTION 1000 ML INFUS.BAG IV ONE (16:04)
[2023-05-20] MEDS ORDERED: SODIUM CHLORIDE 0.9% 500 ML INFUS.BAG IV ONE (16:08)
[2023-05-20] MEDS ORDERED: ACETAMINOPHEN INJECTION 100 ML IVPB ONE (16:16)
[2023-05-20 16:54] LABS: BASO % 1.1 % (0-2.0); EOS % 10.1 % (0-4.5); HEMATOCRIT 43.3 % (35.4-49); HEMOGLOBIN 14.1 GM/dL (11.7-16.9); LYMPH % 27.4 % (8-40); MCH 27.7 pg (25.7-33.7); MCHC 32.7 g/dl (32.0-35.9); MEAN CELL VOLUME 84.7 fl (80-96); MEAN PLT VOLUME 8.4 fl (7.5-11.1); MONO % 6.5 % (3.8-10.2); NEUT % 54.9 % (42.8-82.8); PLATELET COUNT 249 10^3/uL (134-434); RBC 5.11 M/mm3 (4.00-5.60); RDW 15.6 % (11.9-15.9); WHITE BLOOD COUNT 8.7 K/mm3 (4.0-10.0)
[2023-05-20 17:20] LABS: POTASSIUM 5.3 mmol/L (3.5-5.1)
[2023-05-20 17:21] LABS: CALCIUM 8.7 mg/dL (8.5-10.1)
[2023-05-20 17:22] LABS: BLOOD UREA NITROGEN 47.2 mg/dL (7-18); MAGNESIUM 2.2 mg/dL (1.8-2.4)
[2023-05-20 17:24] LABS: CREATININE 3.5 mg/dL (0.55-1.3)
[2023-05-20 17:26] LABS: BILIRUBIN,TOTAL 0.4 mg/dL (0.2-1)
[2023-05-20] MEDS ORDERED: SODIUM ZIRCONIUM CYCLOSILICATE (LOKELMA) 10 GM PACKET ONE (21:15)
[2023-05-20] MEDS: SODIUM ZIRCONIUM CYCLOSILICATE (LOKELMA) 5 GM PACKET PO SCH (21:20)
[2023-05-20] MEDS ORDERED: ATORVASTATIN CA 40 MG TABLET (FP) PO SCH (22:00)
[2023-05-20] MEDS ORDERED: ATORVASTATIN CA 40 MG TABLET (FP) ONE (23:36)
[2023-05-21 06:33] LABS: HEMOGLOBIN 12.9 GM/dL (11.7-16.9); MCH 27.7 pg (25.7-33.7); MCHC 32.3 g/dl (32.0-35.9); MEAN CELL VOLUME 85.7 fl (80-96); MEAN PLT VOLUME 8.9 fl (7.5-11.1); PLATELET COUNT 217 10^3/uL (134-434); RBC 4.67 M/mm3 (4.00-5.60); RDW 15.2 % (11.9-15.9); WHITE BLOOD COUNT 8.5 K/mm3 (4.0-10.0)
[2023-05-21 07:20] LABS: POTASSIUM 5.5 mmol/L (3.5-5.1)
[2023-05-21 07:23] LABS: CALCIUM 8.4 mg/dL (8.5-10.1)
[2023-05-21 07:24] LABS: BLOOD UREA NITROGEN 47.8 mg/dL (7-18)
[2023-05-21 07:27] LABS: CREATININE 3.5 mg/dL (0.55-1.3)
[2023-05-21] MEDS ORDERED: ASPIRIN COATED 81 MG TABLET.EC PO SCH (10:00)
[2023-05-21] MEDS ORDERED: ASPIRIN COATED 81 MG TABLET.EC ONE (10:51)
[2023-05-21] MEDS ORDERED: SODIUM ZIRCONIUM CYCLOSILICATE (LOKELMA) 10 GM PACKET ONE (10:51)
[2023-05-21] MEDS: SODIUM ZIRCONIUM CYCLOSILICATE (LOKELMA) 5 GM PACKET PO SCH (10:52)
[2023-05-21 11:12] LABS: EPI CELLS 2 /uL (0-25.1); HYALINE CASTS 0 /uL (0-3.1); URINE APPEARANCE CLEAR; URINE BACTERIA 0 /uL (0-1359); URINE BILIRUBIN NEGATIVE (NEGATIVE); URINE COLOR YELLOW; URINE GLUCOSE (UA) 2+ (NEGATIVE); URINE KETONE NEGATIVE (NEGATIVE); URINE LEUK ESTERASE NEGATIVE (NEGATIVE); URINE NITRITE NEGATIVE (NEGATIVE); URINE PROTEIN 2+ (NEGATIVE); URINE RBC 14 /uL (0-23.9); URINE UROBILINOGEN 0.2 mg/dL (0.2-1.0); URINE WBC 1 /uL (0-25.8)
[2023-05-21 14:32] VITALS: RESP 18
[2023-05-21 14:34] VITALS: BP 114/68; PULSE 74; TEMP 97.8
== END 2023-05-21 16:14 | disposition home or self-care (01) ==
LOC: JER 14:14 → JERBED 17:06
PROVIDERS: ADMIT Internal Medicine; ATTEND Internal Medicine
PROC: 3E033NZ Introduction of Analgesics, Hypnotics, Sedatives into Peripheral Vein, Percutaneous Approach (ICD-10-PCS; principal; 2023-05-20)
PROC: 3E0337Z Introduction of Electrolytic and Water Balance Substance into Peripheral Vein, Percutaneous Approach (ICD-10-PCS; 2023-05-20)
DX: R42 Dizziness and giddiness (principal); N18.4 Chronic kidney disease, stage 4 (severe); M10.9 Gout, unspecified; E78.5 Hyperlipidemia, unspecified; Q63.2 Ectopic kidney; E87.5 Hyperkalemia; G62.9 Polyneuropathy, unspecified; Z87.891 Personal history of nicotine dependence; F10.21 Alcohol dependence, in remission; Z96.652 Presence of left artificial knee joint
CPT/HCPCS: 0241U-QW; 36415; 70450-TC; 70551-TC; 71045-TC-FY; 80048; 80053; 81003; 82607; 83036; 83735; 84443; 84484; 85025; 85027; 93005; 93010; 96374; 99285-25; G0378

== ENCOUNTER 2023-09-20 16:40 | Inpatient (IN) | payer OTHER ==
[2023-09-20 17:48] LABS: BASO % 0.4 % (0-2.0); EOS % 11.7 % (0-4.5); HEMATOCRIT 45.2 % (35.4-49); HEMOGLOBIN 14.5 GM/dL (11.7-16.9); LYMPH % 27.1 % (8-40); MCH 27.5 pg (25.7-33.7); MCHC 32.1 g/dl (32.0-35.9); MEAN CELL VOLUME 85.7 fl (80-96); MEAN PLT VOLUME 9.1 fl (7.5-11.1); MONO % 9.1 % (3.8-10.2); NEUT % 51.7 % (42.8-82.8); PLATELET COUNT 160 10^3/uL (134-434); RBC 5.27 M/mm3 (4.00-5.60); RDW 15.9 % (11.9-15.9)
[2023-09-20 18:04] LABS: CHLORIDE 111 mmol/L (98-107); SODIUM 138 mmol/L (136-145)
[2023-09-20 18:06] LABS: CALCIUM 8.7 mg/dL (8.5-10.1)
[2023-09-20 18:07] LABS: ALBUMIN 3.6 g/dl (3.4-5.0); BLOOD UREA NITROGEN 48.4 mg/dL (7-18); CO2 20 mmol/L (21-32); GLUCOSE,RANDOM 102 mg/dL (74-106)
[2023-09-20 18:10] LABS: CREATININE 3.8 mg/dL (0.55-1.3); SGOT/AST 14 U/L (15-37); SGPT/ALT 20 U/L (13-61)
[2023-09-20 18:11] LABS: TOT PROT 7.2 g/dl (6.4-8.2)
[2023-09-20 18:12] LABS: BILIRUBIN,TOTAL 0.4 mg/dL (0.2-1)
[2023-09-20 18:13] LABS: ALK PHOS 88 U/L (45-117)
[2023-09-20 18:23] LABS: ANION GAP 7 mmol/L (4-13); POTASSIUM 6.6 mmol/L (3.5-5.1)
[2023-09-20] MEDS ORDERED: DEXTROSE 50%-WATER 25 GM/50 ML DISP.SYRIN ONE ×2 (18:37→21:26)
[2023-09-20] MEDS ORDERED: SODIUM ZIRCONIUM CYCLOSILICATE (LOKELMA) 5 GM PACKET ONE (18:37)
[2023-09-20] MEDS ORDERED: INSULIN REGULAR HUMAN 100 UNITS/ML *VIAL ONE (18:38)
[2023-09-20] MEDS: INSULIN REGULAR HUMAN 100 UNITS/ML *VIAL IVPUSH ONE ×2 (18:51→23:03)
[2023-09-20] MEDS: SODIUM ZIRCONIUM CYCLOSILICATE (LOKELMA) 5 GM PACKET PO ONE (18:51)
[2023-09-20] MEDS: DEXTROSE 50%-WATER - 25 GM/50 ML VIAL IVPUSH ONE ×2 (18:51→23:03)
[2023-09-20] MEDS: SODIUM CHLORIDE 1,000 ML IV SCH ×2 (19:06→19:07)
[2023-09-20 20:29] LABS: CHLORIDE 110 mmol/L (98-107); SODIUM 135 mmol/L (136-145)
[2023-09-20 20:32] LABS: ALBUMIN 3.7 g/dl (3.4-5.0); BLOOD UREA NITROGEN 46.9 mg/dL (7-18); CALCIUM 8.9 mg/dL (8.5-10.1); CO2 20 mmol/L (21-32); GLUCOSE,RANDOM 89 mg/dL (74-106)
[2023-09-20 20:35] LABS: CREATININE 3.8 mg/dL (0.55-1.3); SGOT/AST 13 U/L (15-37); SGPT/ALT 19 U/L (13-61)
[2023-09-20 20:37] LABS: BILIRUBIN,TOTAL 0.4 mg/dL (0.2-1); TOT PROT 7.2 g/dl (6.4-8.2)
[2023-09-20 20:38] LABS: ALK PHOS 94 U/L (45-117)
[2023-09-20 20:42] LABS: ANION GAP 5 mmol/L (4-13); POTASSIUM 7.3 mmol/L (3.5-5.1)
[2023-09-20] MEDS ORDERED: CALCIUM CHLORIDE 1 GM/10 ML *DISP.SYRIN ONE (21:25)
[2023-09-20] MEDS ORDERED: SODIUM BICARBONATE 8.4% 50 MEQ/50 ML DISP.SYRIN ONE (21:27)
[2023-09-20] MEDS ORDERED: SODIUM ZIRCONIUM CYCLOSILICATE (LOKELMA) 10 GM PACKET ONE (21:27)
[2023-09-20] MEDS: SODIUM CHLORIDE 1,000 ML IV STA (21:40)
[2023-09-20] MEDS: CALCIUM CHLORIDE 1 GM/10 ML *DISP.SYRIN IVPUSH ONE (22:02)
[2023-09-20 22:10] LABS: POTASSIUM 5.8 mmol/L (3.5-5.1)
[2023-09-20 22:11] LABS: CALCIUM 8.5 mg/dL (8.5-10.1)
[2023-09-20 22:12] LABS: BLOOD UREA NITROGEN 50.4 mg/dL (7-18)
[2023-09-20 22:15] LABS: CREATININE 3.6 mg/dL (0.55-1.3)
[2023-09-20] MEDS: SODIUM ZIRCONIUM CYCLOSILICATE (LOKELMA) 5 GM PACKET PO SCH (22:29)
[2023-09-20] MEDS: SODIUM BICARBONATE 8.4% 50 MEQ/50 ML VIAL IVPUSH ONE (23:45)
[2023-09-20] MEDS: DEXTROSE 5%-WATER - 950 ML with SODIUM BICARBONATE 8.4% - 150 MEQ IV SCH (23:52)
[2023-09-21 02:12] LABS: POTASSIUM 5.9 mmol/L (3.5-5.1)
[2023-09-21 02:14] LABS: BLOOD UREA NITROGEN 48.4 mg/dL (7-18); CALCIUM 9.1 mg/dL (8.5-10.1)
[2023-09-21 02:18] LABS: CREATININE 3.5 mg/dL (0.55-1.3)
[2023-09-21 02:41] VITALS: BMI 34.6
[2023-09-21 06:29] LABS: HEMATOCRIT 42.9 % (35.4-49); HEMOGLOBIN 13.6 GM/dL (11.7-16.9); MCH 27.2 pg (25.7-33.7); MCHC 31.8 g/dl (32.0-35.9); MEAN CELL VOLUME 85.7 fl (80-96); MEAN PLT VOLUME 9.1 fl (7.5-11.1); PLATELET COUNT 140 10^3/uL (134-434); RBC 5.01 M/mm3 (4.00-5.60); RDW 15.8 % (11.9-15.9); WHITE BLOOD COUNT 6.7 K/mm3 (4.0-10.0)
[2023-09-21] MEDS: HEPARIN NA (PORCINE) 5,000 UNITS/ML 1ML VIAL SQ SCH (06:50)
[2023-09-21 07:01] LABS: POTASSIUM 5.9 mmol/L (3.5-5.1)
[2023-09-21 07:04] LABS: CALCIUM 8.7 mg/dL (8.5-10.1)
[2023-09-21 07:05] LABS: BLOOD UREA NITROGEN 47.2 mg/dL (7-18); MAGNESIUM 1.9 mg/dL (1.8-2.4)
[2023-09-21 07:08] LABS: CREATININE 3.4 mg/dL (0.55-1.3); PHOSPHOROUS 4.3 mg/dL (2.5-4.9)
[2023-09-21] MEDS: FEBUXOSTAT 40 MG TAB PO SCH (09:45)
[2023-09-21] MEDS: amLODIPine BESYLATE 5 MG TABLET (FP) PO SCH (09:45)
[2023-09-21 12:28] LABS: POTASSIUM 5.5 mmol/L (3.5-5.1)
[2023-09-21 12:29] LABS: CALCIUM 8.9 mg/dL (8.5-10.1)
[2023-09-21 12:30] LABS: BLOOD UREA NITROGEN 42.9 mg/dL (7-18)
[2023-09-21 12:33] LABS: CREATININE 3.3 mg/dL (0.55-1.3)
[2023-09-21] MEDS: DEXTROSE 5%-WATER - 950 ML with SODIUM BICARBONATE 8.4% - 150 MEQ IV SCH (13:31)
[2023-09-21] MEDS: EZETIMIBE 10 MG TABLET (FP) PO SCH (21:34)
[2023-09-22] MEDS: SODIUM BICARBONATE 650 MG TABLET PO SCH (10:11)
[2023-09-22 12:49] LABS: CALCIUM 8.8 mg/dL (8.5-10.1)
[2023-09-22 12:50] LABS: BLOOD UREA NITROGEN 41.6 mg/dL (7-18)
[2023-09-22 12:53] LABS: CREATININE 3.4 mg/dL (0.55-1.3)
[2023-09-23 05:45] VITALS: RESP 18; TEMP 97.9
[2023-09-23 08:32] LABS: CALCIUM 8.5 mg/dL (8.5-10.1)
[2023-09-23 08:33] LABS: BLOOD UREA NITROGEN 41.9 mg/dL (7-18)
[2023-09-23 08:35] LABS: CREATININE 3.5 mg/dL (0.55-1.3)
[2023-09-23] MEDS: amLODIPine BESYLATE 5 MG TABLET (FP) PO SCH (09:30)
[2023-09-23 10:52] VITALS: BP 128/79; PULSE 79
== END 2023-09-23 11:11 | disposition home or self-care (01) | DRG 641 ==
LOC: JER 16:40 → JERBED 21:24 → J4W 09-21 01:59
PROVIDERS: ADMIT Internal Medicine; ATTEND Family Medicine
DX: E87.5 Hyperkalemia (principal); N18.4 Chronic kidney disease, stage 4 (severe); I12.9 Hypertensive chronic kidney disease with stage 1 through stage 4 chronic kidney disease, or unspecified chronic kidney disease; E78.5 Hyperlipidemia, unspecified
CPT/HCPCS: 36415; 71045-TC-FY; 80048; 80053; 82962; 83735; 84100; 85025; 85027; 93005; 93010; 99285-25; J1644

== ENCOUNTER 2025-02-04 06:11 | Day surgery (SDC) | payer OTHER ==
[2025-02-03 09:49] VITALS: BMI 32.5
[2025-02-04] MEDS ORDERED: BUPIVACAINE HCL/PF 0.5% (5MG/ML) 10 ML VIAL ONE (11:58)
[2025-02-04] MEDS ORDERED: LACTATED RINGERS SOLUTION 1,000 ML IV SCH (13:30)
[2025-02-04] MEDS ORDERED: ROCURONIUM BROMIDE 50 MG/5 ML SYRINGE ONE (14:35)
[2025-02-04] MEDS ORDERED: SUGAMMADEX SODIUM 200 MG/2 ML VIAL ONE (14:35)
[2025-02-04] MEDS ORDERED: DEXAMETHASONE SOD PHOSPHATE 4 MG/1 ML VIAL ONE (14:35)
[2025-02-04] MEDS ORDERED: ONDANSETRON 4 MG/2 ML VIAL ONE ×2 (14:35→18:35)
[2025-02-04] MEDS ORDERED: SEVOFLURANE 250 ML BTL ONE (14:35)
[2025-02-04] MEDS ORDERED: LIDOCAINE HCL 2% 100 MG/5 ML DISP.SYRIN ONE (14:35)
[2025-02-04] MEDS ORDERED: PROPOFOL 20 ML ONE (14:36)
[2025-02-04] MEDS ORDERED: MIDAZOLAM HCL 2 MG/2 ML SINGLE DOSE VIAL ONE (14:36)
[2025-02-04] MEDS ORDERED: ACETAMINOPHEN INJECTION 100 ML ONE (14:39)
[2025-02-04] MEDS: BUPIVACAINE HCL/PF 0.5% (5 MG/ML) 30 ML VIAL IJ ONE ×3 (15:08)
[2025-02-04 18:30] VITALS: BP 129/74; PULSE 69; RESP 20; TEMP 97.5
[2025-02-04] MEDS: ONDANSETRON 4 MG/2 ML VIAL IVPUSH PRN (18:34)
== END 2025-02-04 18:40 | disposition home or self-care (01) ==
LOC: JASU-SURG 06:11
PROVIDERS: ATTEND Surgery
PROC: 0WHG43Z Insertion of Infusion Device into Peritoneal Cavity, Percutaneous Endoscopic Approach (ICD-10-PCS; principal; 2025-02-04 10:45)
DX: I12.9 Hypertensive chronic kidney disease with stage 1 through stage 4 chronic kidney disease, or unspecified chronic kidney disease (principal); N18.4 Chronic kidney disease, stage 4 (severe)
CPT/HCPCS: 94760; C1750; J1644